=== PATIENT | female | born 1935 | race Caucasian/White ===

== ENCOUNTER 2017-03-08 00:58 | Inpatient (IN) | payer MEDICARE, MEDICAID ==
[~2017-03-08] VITALS: Ht 160 cm; Wt 87.7 kg
--- NOTE | ~2017-03-08 | DS ---
PATIENT'S NAME: ARVIN STUBBS [facility] AGE: 81 Y [address] ROOM: [id number] [place], [place] [address] LOCATION: [facility] ADMIT DATE: 03/08/2017 Discharge Summary DISCHARGE DATE: 03/12/2017 FAMILY PHYSICIAN: Xiao Simmons MD ATTENDING PHYSICIAN: Saul Marie V PRIMARY DIAGNOSIS: Intracranial hemorrhage. CHRONIC CONDITIONS: Include 1. Diabetes, type 2. 2. Essential hypertension. 3. Constipation. PRINCIPAL PROCEDURES: Done for the patient, none was indicated. LABORATORY DATA: WBC on admission was 14.6 and prior to discharge was 7.7, was stable throughout the hospital stay. H and H were also stable throughout the hospital stay; upon discharge, it was 11.7/36.5. Platelets were also stable throughout the hospital stay at 134 upon discharge. Creatinine was stable throughout the hospital stay at 0.8 upon discharge. Sodium was also stable throughout the hospital stay at 139 upon discharge. Potassium was 3.9 upon discharge. Bicarb was also stable throughout the hospital stay at 28 upon discharge. BUN was stable throughout the hospital stay as well at 18 upon discharge. Liver function tests were within normal limits. Hemoglobin A1c was 8.6. RADIOLOGY: CT angio of the head was reported as stable and multiple areas of intracranial hemorrhage without significant change since previous study dated March 07, 2017. Unremarkable [place] with no evidence of aneurysm or vascular malformation or stenosis. Chest x-ray, cardiac silhouette remains prominent. Lungs are clear. The patient are not definitely visualized. CT of the head with stable intracranial hemorrhages. No new bleeding. X-ray of thoracic spine with degenerative changes without acute fracture. Repeat CT of the head on the day of discharge with resolving intracranial hemorrhages as detailed above. Echocardiogram with ejection fraction of 55% to 60%, moderate LVH, grade 1 diastolic dysfunction, and aortic valve is moderately sclerotic. Carotid ultrasound 1-39% plaque on the right internal carotid artery, 1-39% plaque on the left internal carotid artery. Overnight trend ox, the patient has evidence of significant nocturnal hypoxemia, and will qualify for as per Medicare criteria. However, because of the severity of her nocturnal hypoxia with an elevated desaturation event suggested at this time. HOSPITAL COURSE: For history of present illness, please take a look at the H and P, which was done by Dr. Marie. The patient was admitted to ICU for PATIENT'S NAME: ARVIN STUBBS [facility] AGE: 81 Y [address] [place]OM: [id number] [address] LOCATION: GICU ADMIT DATE: 03/08/2017 Discharge Summary DISCHARGE DATE: 03/12/2017 FAMILY PHYSICIAN: Xiao Simmons MD ATTENDING PHYSICIAN: Saul Marie V monitoring, given her presentation of intracranial hemorrhage. The patient was admitted by Dr. Schroeder, the neurosurgeon. Throughout her hospital stay, the patient was monitored with serial CT head, which showed stable intracranial bleed. The patient had no neurological symptoms. She was continued on her diabetic medication as well as her blood pressure medication. Systolic blood pressure goal was to be less than 150. So, the patient had some IV hydralazine pushes to maintain her systolic blood pressure in this goal. The patient's hospital stay was kept for this long as the neurosurgeon felt that she had a significant intracranial bleed, and so needed close monitoring. She did also get Norvasc added to her blood pressure pills to try and keep it within the systolic blood pressure goal. By the next day of the hospital stay, she started with physical therapy as well as occupational therapy, which she did well with. Her chronic medical problems were stable throughout her hospital stay. She did also get an overnight trend ox, which was reported as positive; however, the patient was already on the home O2 at nighttime. However, the global compensation analyst who reported it, felt that the patient should also be set up for a sleep study test. So, on the day of discharge, her vital signs were stable, and the patient was discharged to [facility]. DISCHARGE FOLLOWUP: Followups included to follow up with Dr. Schroeder on March 29, during which time, she needs to get a non-contrast CT head. Also, she is to be set up for a sleep study test as outpatient. She is to be on 2 L of oxygen at bedtime. MEDICATIONS ON DISCHARGE: Included 1. Lasix 40 mg p.o. q.a.m. 2. Neurontin 100 mg p.o. at bedtime. 3. Glimepiride 1 mg p.o. twice daily. 4. Glucophage 500 mg p.o. daily. 5. Ramipril 10 mg p.o. twice daily. 6. Metoprolol 50 mg p.o. twice daily. 7. Lansoprazole 30 mg p.o. q.a.m. 8. Zoloft 100 mg p.o. daily. 9. Tylenol 500 mg p.o. q.4 hours p.r.n. 10. Ativan 0.5 mg p.o. twice daily p.r.n. 11. Milk of magnesia 30 mL p.o. daily p.r.n. 12. Nystatin powder one application topical everyday p.r.n. 13. MiraLax 17 g p.o. daily p.r.n. 14. Norvasc 10 mg p.o. daily p.r.n., new medication. Discharge time spent on this patient was about 35 minutes, which included coordination and discharge plan with care management. PATIENT'S NAME: ARVIN STUBBS [facility] AGE: 81 Y [address] ROOM: [place] [address] LOCATION: [facility] ADMIT DATE: 03/08/2017 Discharge Summary DISCHARGE DATE: 03/12/2017 FAMILY PHYSICIAN: Xiao Simmons MD ATTENDING PHYSICIAN: Saul Marie V MD RODDY BARTLETT/jazmine /[id number] d: 03/13/17 0251 t: 03/16/17 1429, DISCHARGE SUMMARY
--- NOTE | ~2017-03-08 | HP ---
PATIENT'S NAME: ARVIN STUBBS [facility] AGE: 81 Y [address] ROOM: [address] [address] LOCATION: GICU ADMIT DATE: 03/08/2017 History & Physical DISCHARGE DATE: FAMILY PHYSICIAN: PHYSICIAN, UNKNOWN ATTENDING PHYSICIAN: MARY ELLEN ODELL V DATE OF SERVICE: 03/08/2017 CHIEF COMPLAINT: Traumatic brain injury, left temporal contusion, traumatic subarachnoid hemorrhage, frontal basal small subdural hematoma post fall. CLINICAL HISTORY: The patient is an 81-year-old, right-handed female patient, who according to the family and the notes, had a fall from a standing position while unloading her car last night. The patient has no recollection to the event. She was found by her neighbor and was confused. Her daughter was called and she was taken to the emergency in [place] where she was investigated. She had a noncontrast CT head and that showed evidence of subarachnoid hemorrhage in the basal cisterns and along the basal aspect of the frontal lobes. It also showed evidence of a small left anterior temporal contusion and a small frontal basal subdural hematoma. I was contacted and reviewed the imaging. I recommended transferring the patient over for further investigations and management. I met the patient in the presence of her daughter in the intensive care unit. The daughter speculated the mechanism of injury. She said that it was windy in [place] yesterday and the patient probably lost her balance and fell backward from a standing position. According to the daughter as well, the patient has been complaining of lightheadedness and dizziness recently. The patient usually uses a walker but yesterday, she was using a cane. The patient lives in a senior home in [place]. At the time of the encounter, she reported mild headache but denied weakness on her hands, weakness on her feet, neck pain, speech difficulty, visual disturbances. She was complaining of midback discomfort. PAST MEDICAL AND SURGICAL HISTORY: Diabetes, hypertension, cataract surgery, right total knee replacement. REVIEW OF SYSTEMS: All points of review of systems were asked about. Pertinent positives were mentioned in HPI. MEDICATIONS: Listed in the patient's chart. PATIENT'S NAME: LEANN STUBBSJORIE [facility] AGE: 81 Y [address] ROOM: [address] [address] LOCATION: [facility] ADMIT DATE: 03/08/2017 History & Physical DISCHARGE DATE: FAMILY PHYSICIAN: PHYSICIAN, UNKNOWN ATTENDING PHYSICIAN: MARY ELLEN ODELL V FAMILY HISTORY: Reviewed and noncontributory to the patient's presentation. SOCIAL HISTORY: No history of smoking or alcohol drinking. PHYSICAL EXAMINATION: VITAL SIGNS: Systolic blood pressure was less than 150. HEAD: She had bruising on the back of her head that was tender to palpation. She also had dry blood in the left external auditory canal. The pupils were 3 mm and reactive. Sclerae examination was within normal. NECK: No tenderness to palpation. No palpable masses. Neck range of motion was painless. RESPIRATORY: She was not in any respiratory distress. CARDIOVASCULAR: She had palpable pulses on the upper extremities bilaterally. GAIT: Not done. BACK: No obvious deformity. No tenderness to palpation. LYMPHATIC: No cervical lymphadenopathy. MOUTH AND THROAT: No mucosal lesions. NEUROLOGIC: She was alert, oriented to time, place, and person. She named 3/3 objects and followed 1 and 2 step commands. Her pupils were 3 mm and reactive. Face was symmetric. No evidence of pronator drift on the upper extremities. Motor examination on the upper and lower extremities was unremarkable. Sensory examination on the upper and lower extremities was also unremarkable. INVESTIGATIONS: 1. Noncontrast CT head done in [place] at 6:55 p.m. I personally reviewed that. It showed evidence of traumatic subarachnoid hemorrhage in the basal cisterns and along the anterior aspect of the corpus callosum in the area of the anterior communicating artery. It also showed a traumatic subarachnoid hemorrhage in the left sylvian fissure, and in the frontal basal sulci bilaterally. It also showed evidence of a small frontal basal subdural hematoma as well as small left anterior temporal contusion. It also showed opacification of the left mastoid air cells. The auditory canal was patent. No evidence of obvious skull fractures. 2. Cervical spine CT scan done in [place] which I personally reviewed. It showed evidence of diffuse degenerative joint disease, multiple levels, especially at C5-C6 and C6-C7 levels. It also showed evidence of multilevel facet arthropathy. No evidence of obvious fractures or dislocations. 3. CT angiogram of the head done at [facility] at 3:39 a.m. The scan was negative for intracranial aneurysms. IMPRESSION: PATIENT'S NAME: ARVIN STUBBS [facility] AGE: 81 Y [address] ROOM: [place] [address] LOCATION: [facility] ADMIT DATE: 03/08/2017 History & Physical DISCHARGE DATE: FAMILY PHYSICIAN: PHYSICIAN, UNKNOWN ATTENDING PHYSICIAN: MARY ELLEN ODELL V An 81-year-old female patient who had a fall from a standing position yesterday; has traumatic subarachnoid hemorrhage, small frontal basal subdural hematoma, and a small left anterior temporal contusion. Her neurological examination is reassuring. The patient is on no blood thinners. Her blood pressure has been fairly controlled overnight. PLAN: 1. Observation in the hospital for few days. 2. Keep the systolic blood pressure less than 150. 3. Cardiac echocardiogram, bilateral carotid ultrasound to assess for causes of lightheadedness and dizziness. 4. Repeat noncontrast CT head on March 09, 2017 to reassess. 5. PT/OT to mobilize. I reviewed the imaging with the patient, family, and pointed out the findings. I clearly indicated that at this point, the patient does not require any surgical intervention. I recommended observation in our hospital for few days. I also indicated that the patient most likely will require short-term stay in [facility] for more support. The patient's family asked appropriate questions and those were answered to their satisfaction. It was pleasure taking care of this patient and thanks for having us involved in her care. MD JAKE CANADA/jazmine /[id number] CC: MD Berry Tsang MD D: [id number] T: HISTORY & PHYSICAL
--- NOTE | ~2017-03-08 | ENPV ---
Carotid Duplex Study Demographics Patient Name ARVIN STUBBS Date of Study 03/08/2017 Patient Number [id number] Gender Female Date of 1935 Age 81 Visit Number [id number] Height 63 Accession Number [id number] Weight 192 Referring Alexandre Parker MD Interpreting Vincent Elizabeth MD Physician Physician Physician Ordering Physician Alexandre Parker MD Order Selector Renal Dialysis Technician Luis Wilde BS, RT Conclusions Summary The right internal carotid artery has mild, 1-39%, plaque and stenosis. The left internal carotid artery has mild, 1-39%, plaque and stenosis. The right vertebral artery is present with antegrade flow. The left vertebral artery is present with antegrade flow. Calcific plaque at the bulb bilaterally. Procedure Type of Study: Cerebral:Carotid, Carotid Doppler Bilateral. Additional Indications:Fall/Subdural/Confusion Patient Status:Routine. Study Location:Inpatient Portable. Technical Quality:Adequate visualization. Velocities are measured in cm/s ; Diameters are measured in cm Carotid Right Measurements Carotid Left Measurements + +--------+--------+ + + + +--------+ --------+ + + !Location !PSV !EDV !Angle !%Stenosis ! !Location !PSV ! EDV !Angle !%Stenosis ! + +--------+--------+ + + + +--------+ --------+ + + !Prox CCA !90 !13 !60 ! ! !Prox CCA !126 ! 9 !60 ! ! + +--------+--------+ + + + +--------+ --------+ + + !Dist CCA !82 !14 !60 ! ! !Dist CCA !99 ! 12 !60 ! ! + +--------+--------+ + + + +--------+ --------+ + + !Prox ICA !66 !11 !60 ! ! !Prox ICA !89 ! 20 !60 ! ! + +--------+--------+ + + + +--------+ --------+ + + !Dist ICA !55 !12 !38 ! ! !Dist ICA !100 ! 19 !60 ! ! + +--------+--------+ + + + +--------+ --------+ + + !Prox ECA !142 ! !60 ! ! !Prox ECA !175 ! !60 ! ! + +--------+--------+ + + + +--------+ --------+ + + !Vertebral !35 ! !60 ! ! !Vertebral !64 ! !60 ! ! + +--------+--------+ + + + +--------+ --------+ + + !Subclavian !101 ! !60 ! ! !Subclavian !134 ! !60 ! ! + +--------+--------+ + + + +--------+ --------+ + + - There is antegrade vertebral flow noted on the right side. - There is antegrade verte bral flow noted on the left side. - Add'l Measurements:ICAPSV/CCAPSV 0.74.ICAEDV/CCAEDV 0.93. - Add'l Measurements:ICAPS V/CCAPSV 0.79.ICAEDV/CCAEDV 2.13. Signature dtt: EVELYNE LEON dtd: 03/08/17 0935 Physician Self Edit
--- NOTE | ~2017-03-08 | PUL ---
PATIENT'S NAME: ARVIN STUBBS [facility] AGE: 81 Y [address] ROOM: [address] [address] LOCATION: GICU ADMIT DATE: 03/08/2017 Pulmonary DISCHARGE DATE: FAMILY PHYSICIAN: Xiao Simmons MD ATTENDING PHYSICIAN: MARY ELLEN ODELL V NAME OF PROCEDURE: Overnight Pulse Oximetry DATE OF PROCEDURE: March 11 to March 12, 2017 REASON FOR EXAM: Nocturnal hypoxemia RESULTS: The test was performed on room air. The recording time was 9 hours, 9 minutes and 44 seconds, with a total valid sampling time of 8 hours, 9 minutes and 56 seconds. The highest pulse was 96, lowest pulse was 75, with a mean pulse of 84. The highest SpO2 was 96%, lowest SpO2 was 79%, with a mean SpO2 of 92.2%. The patient spent 7 minutes, 44 seconds with SpO2 less than 89%, representing 1.6% of the total sleep time. The desaturation event index was elevated at 25.4. PHYSICIAN INTERPRETATION: The patient has evidence of significant nocturnal hypoxia and would qualify for supplemental oxygen as per Medicare criteria. However because of the severity of her nocturnal hypoxia with an elevated desaturation event index a sleep study is suggested at this time. MD ZULMA ARSHAD/dada /[id number] dtt: 03/13/17 1020 , STEPHAN AGUIRRE dtd: 03/12/17 1505
--- NOTE | ~2017-03-08 | ECHO ---
Transthoracic Echocardiography Report (TTE) Demographics Patient Name ARVIN STUBBS Date of Study 03/08/2017 Patient Number [id number] Visit Number [id number] Date of 1935 Room Number G6203 Gender Female Number Age 81 year(s) Referring Cynthia Hughes V Auto Dealership Porter Nisa Aiken Physician RD, RVT Physician Interpreting J Luis Ahuja MD Peanut Butter Maker Physician Supervising Ordering Cynthia Bell MD/MLP Physician Nurse Stress Label Sewer Conclusions Contractility Score Summary Normal Left Ventricular contractility was noted. Summary Technically difficult exam. The estimated left ventricular ejection fraction is 55-60%. Moderate concentric left ventricular hypertrophy. Diastolic assessment reveals Grade I diastolic dysfunction. The aortic valve is moderately sclerotic. Procedure Type of Study TTE procedure:2D Echocardiogram. Procedure Date Date: 03/08/2017 Start: 09:05 AM Study Location: Inpatient Portable Technical Quality: Adequate visualization Indications:Syncope. Appropriate Use Criteria: 9 Patient Status: Routine HR: 81 bpm BP: 107/59 mmHg M-Mode/2D Measurements LV Diastolic Dimension: 3.65 cm LV Systolic Dimension: 1.64 cm LV Septum Diastolic: 1.32 cm LV PW Diastolic: 1.3 cm Cardiac Output: 3.91 l/min LA Dimension: 3.1 cm LVOT: 1.8 cm LVOT VTI: 19 cm RV Base: 3.11 cm LV Stroke volume: 48.32 ml RV Length: 6.32 cm TAPSE: 1.95 cm TDI-S': 11.3 cm/s Doppler Measurements AV Peak Velocity: 1.39 m/s MV Peak E-Wave: 0.71 m/s AV Peak Gradient: 7.73 mmHg MV Peak A-Wave: 1.3 m/s AV Mean Gradient: 5 mmHg MV E/A Ratio: 0.54 LVOT Peak Velocity: 1.06 m/s MV P1/2t: 77 msec TR Gradient:6.15 mmHg PV Peak Velocity: 1.11 m/s Estimated RAP:5 mmHg PV Peak Gradient: 4.93 mmHg Estimated RVSP: 11 mmHg Estimated PASP: 11.15 mmHg E' Septal Velocity: 0.04 m/s A' Septal Velocity: 0.1 m/s E' Lateral Velocity: 0.04 m/s A' Lateral Velocity: 0.14 m/s Findings Left Ventricle Moderate concentric left ventricular hypertrophy. Diastolic assessment reveals Grade I diastolic dysfunction. Right Ventricle Normal right ventricle structure and function. Left Atrium Normal left atrial size. Right Atrium Normal right atrial size. Mitral Valve Trivial mitral regurgitation by color Doppler. Aortic Valve The aortic valve is moderately sclerotic. Tricuspid Valve Trivial tricuspid regurgitation by color Doppler. Pulmonic Valve Normal pulmonic valve structure and function. Pericardial Effusion No evidence of pericardial effusion. Miscellaneous Visualized portions of the aortic root and ascending aorta appear normal in size. Pleural Effusion No evidence of pleural effusion. Contractility Score LV regional wall motion:(0-Non visualized 1-Normal 2-Hypokinesis 3-Akinesis 4-Dyskinesis 5-Aneurysm) Signature dtt: Seymour Dietz (cardio) dtd: 03/08/17 0905 Physician Self Edit
--- NOTE | ~2017-03-08 | CON ---
PATIENT'S NAME: [facility] AGE: 81 Y [address] ROOM: [place] [address] LOCATION: GICU ADMIT DATE: 03/08/2017 Consultation DISCHARGE DATE: FAMILY PHYSICIAN: PHYSICIAN, UNKNOWN ATTENDING PHYSICIAN: MARY ELLEN ODELL V DATE OF CONSULTATION: 03/08/2016 REFERRING PHYSICIAN: Lien Schroeder MD CONSULTING PHYSICIAN: Mary Ellen Odell MD. REASON FOR CONSULTATION: Medical management HISTORY OF PRESENT ILLNESS: The patient is a 80-year-old female who was transferred to [facility] from [place], where she presented with syncope, fall, and was found to have subarachnoid as well as subdural hemorrhages. Per discussion with the patient and her daughter, the last thing she remembers before being found by the neighbors is parking her car near her apartment. Subsequent to that, as per report from her daughter, she was found confused on the side of the parking lot by the neighbors. She really has no recollection of what has happened to her and cannot really point to what is the 1st memory that she has after the incident. She reports she has fallen before, but she has never have an incidence associated with these kinds of loss of memory and loss of consciousness The remainder of the workup performed in [place] was unremarkable. At this point, the patient volunteers no shortness of breath, nausea, vomiting, or diarrhea. She does complain of some upper/pqg-xx-zntyc back pain, which is constant for her as well as bleeding from her left ear. She is quite alert and somewhat oriented though forgetful. REVIEW OF SYSTEMS: All systems have been reviewed and are negative aside from pertinent positives mentioned above. PAST MEDICAL HISTORY: As provided by the daughter and the patient is roo-vajvsdy-bomvzmdyn diabetes, essential hypertension, history of cataract surgeries. Also, history of total right knee. PATIENT'S NAME: [facility] AGE: 81 Y [address] ROOM: [place] [address] LOCATION: [facility] ADMIT DATE: 03/08/2017 Consultation DISCHARGE DATE: FAMILY PHYSICIAN: PHYSICIAN, UNKNOWN ATTENDING PHYSICIAN: MARY ELLEN ODELL V CURRENT MEDICATIONS: Include metformin and gabapentin and a full list is being compiled. SOCIAL HISTORY: Negative for any history of ongoing toxic habits. The patient still lives on her own and is able to attend to her ADLs. FAMILY HISTORY: Reviewed and noncontributory due to advanced age and known underlying etiology for her presentation. PHYSICAL EXAMINATION: VITAL SIGNS: Her blood pressure is 170s-150 systolic/70s diastolic, heart rate is in the 80s, satting 93% on room air, respirations 16, and she is afebrile. GENERAL: Appears as a well-developed, well-nourished, elderly female, in no acute distress. EYES: Exam shows surgical pupils bilaterally. ENT: Exam reveals fresh blood, but no active bleeding within the left external ear. LYMPHATICS: Exam shows no cervical lymphadenopathy. ENDOCRINE: Exam shows no thyromegaly. LUNGS: Clear to auscultation bilaterally. HEART: Rate is regular with no appreciable murmurs, gallops, or rubs. ABDOMEN: Soft, nontender, nondistended. : No costovertebral angle tenderness. VASCULAR: A 2+ pedal pulses, MUSCULOSKELETAL: No muscle or joint abnormalities. NEUROLOGIC: Exam is grossly nonfocal. PSYCHIATRIC: Appropriate mood, cognition, and affect. LABORATORY DATA: Review of the study shows an EKG with first-degree AV block and a preexisting right bundle-branch block. Lab results are significant for hyperglycemia. IMPRESSION AND RECOMMENDATIONS: This is a 80-year-old female with: 1. Traumatic subdural and subarachnoid hemorrhages. The patient's CT of cervical spine was unremarkable and we will remove her cervical collar. 2. Blood in the left ear. We will add a dedicated temporal bone CT to the CT angio that is planned at this point. If there are any abnormalities, we will request an ENT consult. 3. Syncope. At this point, we will add a 2-dimensional echocardiogram as part of the syncope workup. PATIENT'S NAME: [facility] AGE: 81 Y [address] ROOM: [id number] [place], [place] [address] LOCATION: [facility] ADMIT DATE: 03/08/2017 Consultation DISCHARGE DATE: FAMILY PHYSICIAN: PHYSICIAN, UNKNOWN ATTENDING PHYSICIAN: MARY ELLEN ODELL V 4. Hne-opqkvhq-baipbhtft diabetes. The patient will be receiving contrast and we will discontinue her metformin. We will also put her on normal saline as her GFR is borderline low for her age. 5. Back pain. This is chronic and we will provide her with a K-Pad and consider mild muscle relaxants if this continues. 6. Additional management will depend on clinical course. Time dedicated to this patient encounter is 35 minutes. MD PERCY ISSA/jazmine /[id number] d: 03/08/17 0542 t: 03/29/17 0412, CONSULTATION REPORT
[2017-03-08 01:41] LABS: BASOPHIL # 0.1 K/uL (0.0-0.2); BASOPHIL % 0.3 %; EOSINOPHIL % 0.1 %; HEMATOCRIT 40.5 % (30.0-46.0); HEMOGLOBIN 13.3 g/dL (10.0-15.0); IMMATURE GRANULOCYTE # 0.1 K/uL (0.0-0.3); IMMATURE GRANULOCYTE % 0.7 %; LYMPHOCYTE # 1.1 K/uL (0.8-4.0); LYMPHOCYTE % 7.8 %; MCH 27.8 pg (27.0-34.0); MCHC 32.8 gm/dL (32.0-36.5); MCV 84.7 fl (83.0-98.0); MONOCYTE # 0.9 K/uL (0.0-1.0); MONOCYTE % 5.8 %; MPV 10.7 fl (9.4-12.4); NEUTROPHIL # (ANC) 12.4 K/uL (1.8-7.8); NEUTROPHIL % 85.3 %; NRBC % 0 /100WBC (0-0.00); PLATELET COUNT 145 K/uL (150-450); RBC 4.78 M/uL (3.00-5.00); WBC 14.6 K/uL (4.0-11.0)
[2017-03-08 01:51] LABS: INR - (THERAPEUTIC) 1.08 (0.92-1.07); PROTIME 11.4 SECONDS (9.8-11.4); PTT 26 SECONDS (25-32)
[2017-03-08 01:58] LABS: ALBUMIN 3.4 gm/dL (3.5-5.0); ANION GAP 11.6 (10.0-19.0); CALCIUM 8.1 mg/dL (8.5-10.5); CREATININE 1.1 mg/dL (0.5-1.1); POTASSIUM 3.6 mMol/L (3.7-5.1); TOTAL BILIRUBIN 0.4 mg/dL (0.0-1.5); TOTAL PROTEIN 7.9 g/dL (6.0-8.4)
--- NOTE | 2017-03-08 06:47 | NUR ---
81 YO female from [place], resides in community living for elders. Witnessed to have sustained a ground fall by her neighbor, had struck the back-side of her head. Patient does not recall the event or anything that may have caused the fall, she does remember being in the [facility]. Scans revealed a TBI, she was transferred via ambulance and arrive to floor at 0105. She was placed in a hard collar originially, when the hospitalist assessed the patient, he removed the collar, no complaints of neck stiffness/pain. AAOx3, forgetful of the incident that lead to her hospitalization. Past medical history includes kyphoplasty, appendectomy, cholecystectomy, tonsilectomy, L) total knee replacement, HTN, GERD, hiatal hernia, DM II controlled with Metformin. Complaints of pain to her upper mid-line back and also posterior CALVO, heat pack placed. Equal strong strength to upper extremities, equal moderate strength to lower extremities. Clear speech. Follows commands appropriately. V.S. stable. Daughter (POA) at bedside.
--- NOTE | 2017-03-08 06:53 | NUR ---
Significant Event: AAOx3, forgetful of incident that led to hospitalization. L) pupil 4mm brisk, R) pupil 3mm brisk. Denies N/T. Posterior CALVO rates 7-9/10 relieved by Tylenol and Dilaudid. Equal strong strength to upper extremities, equal moderate strength to bilateral lower extremities. NIHSS 0. Gave Labetalol x 1 to keep SBP <150. HR 70-90's SR, 1+ edema to lower extremities, weak pedal pulses. L.S. clear and diminished throughout, on RA. B.S. active, last BM 03/07, patient stated she does have a hiatal hernia. Urinates per bed barajas, activity as tolerated. Does become nauseated and light-headed with repositioning, gave Zofran; relief noted. PIV L) hand infusing NaCl at 75mL/hr. NPO. Follow up: Alexandre to evaluate CT with Contrast this am.
[2017-03-08] MEDS ORDERED: NYSTOP60 GM TOP (11:39)
[2017-03-08] MEDS ORDERED: TOPROL XL 5050 MG PO (11:40)
[2017-03-08] MEDS ORDERED: PREVACID30 M1 PO (11:40)
[2017-03-08] MEDS ORDERED: GLUCOPHAGE XR500 M1 PO (11:41)
[2017-03-08] MEDS ORDERED: ATIVAN 0.5MG0.5 MG PO (11:41)
[2017-03-08] MEDS ORDERED: NEURONTIN100 MG PO (11:42)
[2017-03-08] MEDS ORDERED: ZOLOFT100 MG PO (11:42)
[2017-03-08] MEDS ORDERED: ALTACE10 MG PO (11:42)
[2017-03-08] MEDS ORDERED: TYLENOL EXTRA500 MG PO (11:43)
[2017-03-08] MEDS ORDERED: LASIX40 MG PO (11:43)
[2017-03-08] MEDS ORDERED: AMARYL2 MG PO (11:44)
--- NOTE | 2017-03-08 14:45 | NUR ---
Introduced self and role of care management to pt, daughter Aranza and son Armani. Pt lives in [place] at [facility]. SHe has her own apartment and is up mostly on her own but has a walker she should use. She sets up her own meds and does her own cooking and cleaning but she does go to the dinning room 3-4 a week for lunch. Daughter states Dr Romero thinks she needs to go skilled for a short stay prior to home and she has done this before at [facility]. Pt really just wants to go home and will think about it. I explained I will make referral and if she is doing awesome she can discuss with DR Romero and maybe do the [facility] but until then I will pursue skilled. I did call and left a vm with [facility] and faxed information. WIll continue to follow.
--- NOTE | 2017-03-08 17:28 | NUR ---
PATIENT IS ALERT AND ORTIENTED X3 BUT FORGETFUL AT TIMES OF RECENT MEMORY. EQUAL STRENGTH IN THE UPPER EXTREMITIES AND MODERATE STRENGTH IN THE LOWER EXTREMITIES. HEADACHE AND OTHER PAIN HAVE BEEN UNDER CONTROL WITH MEDICATION AND REPOSITIONING. PATIENT HAS BEEN AFEBRILE. COMPLAINS OF NAUSEA WITH TURNING AND WALKING. FOLLOW UP: CT WITHOUT CONSTRAST IN THE AM. WILL CONTINUE TO MONITOR BLEED FOR THE NEXT COUPLE OF DAYS. PLANS FOR DISCHARGE ARE FOR THE BEGINNING OF NEXT WEEK.
--- NOTE | 2017-03-09 05:11 | NUR ---
SIGNIFICANT EVENT: PATIENT STARTED ON OXYGEN AT NIGHT FOR DECREASED SATURATIONS. LABETALOL GIVEN ONCE FOR HIGH BLOOD PRESSURE. PATIENT HAS TROUBLE WITH DIZZINESS AND NASUEA WHEN STANDING UP AND AMBULATION TO THE TOILET. NO HEADACHE. DRIED BLOOD IN LEFT EAR. NO VISIBLE BUMP ON BACK OF THE HEAD. ABLE TO FOLLOW COMMANDS APPROPRIATELY, ALERT AND ORIENTED X3. FOLLOW UP: CT THIS MORNING
[2017-03-09 05:48] LABS: BASOPHIL % 0.6 %; EOSINOPHIL # 0.1 K/uL (0.0-0.5); EOSINOPHIL % 1.5 %; HEMATOCRIT 36.6 % (30.0-46.0); HEMOGLOBIN 11.8 g/dL (10.0-15.0); IMMATURE GRANULOCYTE % 0.6 %; LYMPHOCYTE # 1.6 K/uL (0.8-4.0); LYMPHOCYTE % 22.6 %; MCH 27.8 pg (27.0-34.0); MCHC 32.2 gm/dL (32.0-36.5); MCV 86.1 fl (83.0-98.0); MONOCYTE # 0.6 K/uL (0.0-1.0); MONOCYTE % 8.8 %; MPV 10.3 fl (9.4-12.4); NEUTROPHIL # (ANC) 4.7 K/uL (1.8-7.8); NEUTROPHIL % 65.9 %; NRBC % 0 /100WBC (0-0.00); RBC 4.25 M/uL (3.00-5.00); RDW-CV 15.1 % (11.9-14.6); WBC 7.2 K/uL (4.0-11.0)
[2017-03-09 05:50] LABS: PLATELET COUNT 115 K/uL (150-450)
[2017-03-09 06:14] LABS: ANION GAP 9.7 (10.0-19.0); CREATININE 0.9 mg/dL (0.5-1.1); POTASSIUM 3.7 mMol/L (3.7-5.1); TOTAL PROTEIN 7.1 g/dL (6.0-8.4)
[2017-03-09 06:21] LABS: TOTAL BILIRUBIN 0.5 mg/dL (0.0-1.5)
--- NOTE | 2017-03-09 17:31 | NUR ---
Significant Event: Patient is oriented X3, but confused at times. This afternoon she was upset with staff because she did not want to participate in care or take medications. She thoughty staff was plotting against her. She is doing better this afternoon. Labetalol IV prn was given X1 to keep SBP <150. Her home BP medications were restarted. She ambulated to the bathroom and chair multiple times today with 2 assist and walker. She does still have dizziness with ambulation at times. She he an emesis x1 and zofran given. Unable to get an orthostatic BP today because pt. refuses to lay flat for long enough because it hurts her head. No change in BP from sitting to standing. Follow up: Continue to monitor Neuro status
[2017-03-10 05:35] LABS: BASOPHIL # 0.1 K/uL (0.0-0.2); BASOPHIL % 0.7 %; EOSINOPHIL # 0.2 K/uL (0.0-0.5); EOSINOPHIL % 2.1 %; HEMOGLOBIN 11.8 g/dL (10.0-15.0); IMMATURE GRANULOCYTE % 0.5 %; LYMPHOCYTE # 1.8 K/uL (0.8-4.0); LYMPHOCYTE % 23.5 %; MCH 27.5 pg (27.0-34.0); MCHC 31.9 gm/dL (32.0-36.5); MCV 86.2 fl (83.0-98.0); MONOCYTE # 0.8 K/uL (0.0-1.0); MONOCYTE % 9.8 %; MPV 9.8 fl (9.4-12.4); NEUTROPHIL # (ANC) 4.9 K/uL (1.8-7.8); NEUTROPHIL % 63.4 %; NRBC % 0 /100WBC (0-0.00); PLATELET COUNT 131 K/uL (150-450); RBC 4.29 M/uL (3.00-5.00); RDW-CV 15.3 % (11.9-14.6); WBC 7.7 K/uL (4.0-11.0)
[2017-03-10 05:50] LABS: ALBUMIN 2.9 gm/dL (3.5-5.0); ANION GAP 8.4 (10.0-19.0); CALCIUM 8.1 mg/dL (8.5-10.5); POTASSIUM 3.4 mMol/L (3.7-5.1); TOTAL BILIRUBIN 0.4 mg/dL (0.0-1.5); TOTAL PROTEIN 7.1 g/dL (6.0-8.4)
--- NOTE | 2017-03-10 15:44 | NUR ---
AMANDA. No complaits of pain, n/t. Does complain of some dizziness upon ambulation. Is forgetful at times but reorients. SBP treated with labetolol pushes x2 this shift to keep SBP <150. Afebrile. Continues on RA during the day. Follow up: Trend ox study the night prior to discharge. CT scan on 03/12.
--- NOTE | 2017-03-11 04:40 | NUR ---
Significant Event: AAOx3, Denies N/T. PERRLA 3mm brisk. Equal strong strength throughout. Occasional slight complaint of CALVO and dizziness with ambulation. Denies blurred vision. Systolic 140-150's, gave Labetalol x 1 for SBP >150; relief noted. HR 80's, weak pedal pulse, absent edema. L.S. clear and diminished in lower lobes on RA, wears 2L at noc while sleeping, did not require O2 this shift. B.S. active, actively passing gas, last BM 03/07. Urinates per 1PA walker/GB no complications. PIV L) wrist SL'd. Accuchecks AC/HS. Follow up: NTU status, trend ox 03/11, f/u CT on 03/12 then tx to [facility]?
[2017-03-11 05:33] LABS: BASOPHIL % 0.5 %; EOSINOPHIL # 0.2 K/uL (0.0-0.5); EOSINOPHIL % 2.6 %; HEMATOCRIT 36.5 % (30.0-46.0); HEMOGLOBIN 11.7 g/dL (10.0-15.0); IMMATURE GRANULOCYTE # 0.1 K/uL (0.0-0.3); IMMATURE GRANULOCYTE % 0.8 %; LYMPHOCYTE # 1.5 K/uL (0.8-4.0); LYMPHOCYTE % 18.8 %; MCH 27.8 pg (27.0-34.0); MCHC 32.1 gm/dL (32.0-36.5); MCV 86.7 fl (83.0-98.0); MONOCYTE # 0.7 K/uL (0.0-1.0); MONOCYTE % 9.2 %; MPV 10.3 fl (9.4-12.4); NEUTROPHIL # (ANC) 5.3 K/uL (1.8-7.8); NEUTROPHIL % 68.1 %; NRBC % 0 /100WBC (0-0.00); PLATELET COUNT 134 K/uL (150-450); RBC 4.21 M/uL (3.00-5.00); RDW-CV 15.4 % (11.9-14.6); WBC 7.7 K/uL (4.0-11.0)
[2017-03-11 05:50] LABS: ALBUMIN 2.9 gm/dL (3.5-5.0); ALK PHOS 119 IU/L (33-138); ALT 24 IU/L (12-78); ANION GAP 9.9 (10.0-19.0); AST 24 IU/L (10-40); BLOOD UREA NITROGEN 18 mg/dL (6-24); CALCIUM 8.1 mg/dL (8.5-10.5); CHLORIDE 105 mMol/L (96-110); CO2 28 mMol/L (22-32); CREATININE 0.8 mg/dL (0.5-1.1); ESTIMATED GFR (MDRD EQUATION) > 60; POTASSIUM 3.9 mMol/L (3.7-5.1); SODIUM 139 mMol/L (135-145); TOTAL BILIRUBIN 0.5 mg/dL (0.0-1.5)
--- NOTE | 2017-03-11 11:15 | NUR ---
I did get a vm from [facility] to fax med list. I did fax that and also update therapy notes. Looking like could be ready on Saturday the [facility]aul.
--- NOTE | 2017-03-11 11:19 | NUR ---
I did call and spoke with Jes[facility] and she has the information and would not tell me either way that the DON needs to look at the information. Will continue to follow.
--- NOTE | 2017-03-11 13:11 | NUR ---
Significant Event: Patient is A/Ox3, follows all commands. C/O CALVO 7-06/25. Tylenol PRN given x1 and .1mg PRN dilaudid given x1. As morning as progressed patient had become more talkative/laughing with family. Walked in hallsx3. Denies nausea/vomiting. Denies numbness/tingling/vision changes.SR with HR 70-80's. SBP 119-120's. Afebrile. Room air, spo2>97%. Lungs ascultated clear throughout. Denies shortness of breath. Active bowel sounds, no BM. Poor appetite. Up to BR with standby assist. Dizzy at times with/without activy, gait steady. Follow up: Continue to monitor neuro. When taking adequate PO can saline loc IVF.CT of head in am.
--- NOTE | 2017-03-11 15:34 | NUR ---
I still have not heard from [facility], I then called daughter Berna [phone] and she has not heard from them either. I did tell her maybe to give them a call as well because they have not officially accepted her yet. I then got a call from Berna and she stated [facility] stated they are not going to accept her and she said she was not very nice and something about her medicaid plan and being there for more than 20 days. I explained the plan is for 10-14. I then asked about making a referral to [facility] and she stated yes because Dr Schroeder seems to think she will be ready tomorrow. I then tried again calling Jesenia on her cell [phone] or main [phone] and left a vm. I called [facility] and spoke with Aranza [phone] and faxed referral. She will have her hospitalist look at and she does have a bed available and I told her ready tomorrow. I did update my coworker Agnes on this as well. WIll continue to work on placement.
--- NOTE | 2017-03-11 16:16 | NUR ---
Significant Event:Patient is A/Ox3,follows all commands. Equal strong strenght x4 extremities.Denies numbness/tingling/blurred or double vision. 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 SR with HR 70-90.SBP 120-180. Gave PRN hydralazine 10mgx3. Afebrile. Remains on RA spo2>94%. Lungs ascultated clear throughout. Active bowel sounds, no BM. Gave colace, MOM and miralax today. 1 assist to BR for voids, does not like the hat in toilet states that it scratches her bottom. Up to chair. Follow up:Follow up CT in am. Dismiss to longterm either tomorrow or saturday.
--- NOTE | 2017-03-12 04:53 | NUR ---
Significant Event:A/OX3. DENIES NUMBNESS AND TINGLING. MOVES ALL EXTREMITIES SPONTANEOUSLY AND TO COMMAND. PUPILS 3.0 AND BRISK. MODERATE, EQUAL STRENGTH. UP 1 ASSIST GAIT BELT AND WALKER. COMPLAINED OF SLIGHT HEADACHE, TYLENOL GIVEN X1. RELIEF NOTED. LUNGS CLEAR ON ROOM AIR. TRENDOX TONIGHT. SBP IN 150S-160S. LABETOLOL GIVEN X2. PEROXIDE TO LEFT EAR.ACHS ACCUCHECKS. PIV TO LEFT WRIST SALINE LOCKED. DIABETIC DIET. LAST BM . GAVE COLACE X2 AND MOM X1. PASSING FLATUS. CT THIS AM. POSSIBLE DISCHARGE LATER TODAY. FAMILY TO TAKE HER BACK TO [facility] WHEN DISHCARGED. Follow up:
--- NOTE | 2017-03-12 09:19 | NUR ---
Significant Event: Alert & oriented but forgetful, hard of hearing. Ambulates SBA with walker and gaitbelt, slow but steady. VSS, afebrile, room air. Trend ox done overnight. CT done this morning, bleed stable/improving. Complaint of minor headache and some nausea, pt denied need for meds and requested to rest. Accuchek ACHS moderate sliding scale. No BM since admission, passing gas, BS active, see eMAR for PRN meds given. Plans to discharge to [facility] around noon, family to transport. Follow up: Dr. Schroeder March 29
--- NOTE | 2017-03-12 12:59 | NUR ---
Patient discharging today to [facility], after talking with daughters they accepted for short skilled stay. I let Annette at [facility] know. Faxed orders to Jesenia at [facility] and gave nurse number to call report. They will call and let us know when we can discharge pt to them, waiting on pt primary care physician to cosign orders then will call us. Son coming to get patient, I have talked about plan with daughter Berna as well.
== END 2017-03-12 15:07 | DRG 84 ==
LOC: GICU 00:58
PROVIDERS: Neurological Surgery; ADMIT Internal Medicine
PROC: B246ZZZ Ultrasonography of Right and Left Heart (ICD-10-PCS; principal; 2017-03-08)
PROC: 3E0F7GC Introduction of Other Therapeutic Substance into Respiratory Tract, Via Natural or Artificial Opening (ICD-10-PCS; 2017-03-11)
DX: S06.6X9A Traumatic subarachnoid hemorrhage with loss of consciousness of unspecified duration, initial encounter (principal); G47.34 Idiopathic sleep related nonobstructive alveolar hypoventilation; E11.9 Type 2 diabetes mellitus without complications; I10 Essential (primary) hypertension; S06.9X9A Unspecified intracranial injury with loss of consciousness of unspecified duration, initial encounter; W18.30XA Fall on same level, unspecified, initial encounter
CPT/HCPCS: J0360; J2001; J2405; J2765; J7030; Q9967

== ENCOUNTER → 2017-03-26 | Outpatient (CLI) | payer MEDICARE, MEDICAID ==
[~2017-03-26] MED LIST: ALTACE10 MG PO; AMARYL2 MG PO; ATIVAN 0.5MG0.5 MG PO; GLUCOPHAGE XR500 M1 PO; LASIX40 MG PO; NEURONTIN100 MG PO; NYSTOP60 GM TOP; PREVACID30 M1 PO; TOPROL XL 5050 MG PO; TYLENOL EXTRA500 MG PO; ZOLOFT100 MG PO
== END | disposition disaster alternative care site (69) ==
LOC: GRAD 03-12 09:24
DX: S06.9X0D Unspecified intracranial injury without loss of consciousness, subsequent encounter (principal); E11.9 Type 2 diabetes mellitus without complications; K59.00 Constipation, unspecified; I10 Essential (primary) hypertension; G31.9 Degenerative disease of nervous system, unspecified; I67.82 Cerebral ischemia; G93.89 Other specified disorders of brain; X58.XXXD Exposure to other specified factors, subsequent encounter